=== PATIENT | male | born 1950 | race Two or more races ===

== ENCOUNTER 2023-09-11 12:22 | Observation (INO) | payer OTHER ==
[2023-09-11] MEDS ORDERED: ACETAMINOPHEN 1000 MG/100 ML BAG IVPB ONE (16:16)
[2023-09-11 16:17] LABS: EPI CELLS 9 /uL (0-25.1); HYALINE CASTS 1 /uL (0-3.1); PH,URINE 5.5 (5.0-8.0); URINE APPEARANCE TURBID; URINE BACTERIA 3119 /uL (0-1359); URINE BILIRUBIN NEGATIVE (NEGATIVE); URINE COLOR ORANGE; URINE GLUCOSE (UA) NEGATIVE (NEGATIVE); URINE KETONE NEGATIVE (NEGATIVE); URINE LEUK ESTERASE 3+ (NEGATIVE); URINE NITRITE POSITIVE (NEGATIVE); URINE PROTEIN 2+ (NEGATIVE); URINE RBC 16749 /uL (0-23.9); URINE WBC 1780 /uL (0-25.8)
[2023-09-11] MEDS ORDERED: PIPERACILLIN/TAZOB 4.5 GM 4.5 GM in DEXTROSE 5%-WATER 100 ML IVPB ONE (16:24)
[2023-09-11 17:29] LABS: HEMATOCRIT 40.9 % (35.4-49); HEMOGLOBIN 13.3 GM/dL (11.7-16.9); MCHC 32.6 g/dl (32.0-35.9); MEAN CELL VOLUME 79.9 fl (80-96); MEAN PLT VOLUME 9.4 fl (7.5-11.1); PLATELET COUNT 174 10^3/uL (134-434); RBC 5.12 M/mm3 (4.00-5.60); RDW 15.5 % (11.9-15.9)
[2023-09-11 17:37] LABS: POTASSIUM 4.9 mmol/L (3.5-5.1)
[2023-09-11 17:40] LABS: ALBUMIN 3.7 g/dl (3.4-5.0); BLOOD UREA NITROGEN 14.4 mg/dL (7-18)
[2023-09-11] MEDS ORDERED: PIPERACILLIN/TAZOB 4.5 GM 4.5 GM/100 ML BAG IVPB ONE (17:44)
[2023-09-11] MEDS ORDERED: ACETAMINOPHEN INJECTION 100 ML IVPB ONE (17:44)
[2023-09-11 17:45] LABS: BILIRUBIN,TOTAL 0.5 mg/dL (0.2-1); TOT PROT 7.8 g/dl (6.4-8.2)
[2023-09-11] MEDS ORDERED: ACETAMINOPHEN 325 MG TABLET (FP) PO PRN (17:45)
[2023-09-11 18:23] LABS: ANISOCYTOSIS 1+; OVALOCYTE 1+; PLATELET ESTIMATE NORMAL
[2023-09-11] MEDS: ALPRAZolam 0.25 MG TABLET PO SCH (22:55)
[2023-09-11] MEDS: HEPARIN NA (PORCINE) 5,000 UNITS/ML 1ML VIAL SQ SCH (23:02)
[2023-09-12 05:13] VITALS: BMI 33.7
[2023-09-12] MEDS: HEPARIN NA (PORCINE) 5,000 UNITS/ML 1ML VIAL SQ SCH ×3 (05:43→22:18)
[2023-09-12] MEDS: TAMSULOSIN HCL 0.4 MG CAP PO SCH (08:30)
[2023-09-12 09:24] LABS: BASO % 0.9 % (0-2.0); EOS % 0.3 % (0-4.5); HEMATOCRIT 43.3 % (35.4-49); LYMPH % 28.2 % (8-40); MCHC 32.4 g/dl (32.0-35.9); MEAN CELL VOLUME 80.2 fl (80-96); MEAN PLT VOLUME 9.5 fl (7.5-11.1); MONO % 17.8 % (3.8-10.2); NEUT % 52.8 % (42.8-82.8); PLATELET COUNT 185 10^3/uL (134-434); WHITE BLOOD COUNT 7.7 K/mm3 (4.0-10.0)
[2023-09-12 09:44] LABS: POTASSIUM 3.9 mmol/L (3.5-5.1)
[2023-09-12 09:52] LABS: ALBUMIN 3.7 g/dl (3.4-5.0); CALCIUM 8.9 mg/dL (8.5-10.1)
[2023-09-12 09:53] LABS: CREATININE 1.1 mg/dL (0.55-1.3)
[2023-09-12 09:54] LABS: BILIRUBIN,TOTAL 0.4 mg/dL (0.2-1)
[2023-09-12 09:56] LABS: PHOSPHOROUS 3.6 mg/dL (2.5-4.9)
[2023-09-12] MEDS ORDERED: ALPRAZOLAM 1 MG PO SCH (10:00)
[2023-09-12] MEDS ORDERED: PATIENT'S OWN MEDICATION (NON-FORMULARY) (Timolol [Betimol] 5 ML Drops) OP SCH (10:00)
[2023-09-12] MEDS: LOSARTAN POTASSIUM 50 MG TABLET PO SCH (10:01)
[2023-09-12] MEDS: HYDROCHLOROTHIAZIDE 12.5 MG CAPSULE (FP) PO SCH (10:02)
[2023-09-12] MEDS: CEFTRIAXONE 1 GM in DEXTROSE 5%-WATER - 50 ML IVPB SCH (10:02)
[2023-09-12] MEDS: CARVEDILOL PHOSPHATE CR 40 MG CAPSULE (FP) PO SCH (10:02)
[2023-09-12] MEDS: ALPRAZolam 0.25 MG TABLET PO SCH ×2 (10:04→22:18)
[2023-09-12] MEDS: TIMOLOL 0.5% OPHTHALMIC SOL 5 ML BOTTLE OU SCH (11:59)
[2023-09-12] MEDS: LATANOPROST 0.005% OPHTH SOLN 2.5ML BOTTLE OU SCH (11:59)
[2023-09-13] MEDS ORDERED: POLYETHYLENE GLYCOL (HEALTHYLAX) 3350 17 GM PACKET PO ONE (03:45)
[2023-09-13] MEDS: HEPARIN NA (PORCINE) 5,000 UNITS/ML 1ML VIAL SQ SCH ×3 (06:51→21:48)
[2023-09-13 08:44] LABS: CALCIUM 8.6 mg/dL (8.5-10.1)
[2023-09-13 08:45] LABS: ALBUMIN 3.2 g/dl (3.4-5.0); BLOOD UREA NITROGEN 14.2 mg/dL (7-18); POTASSIUM 3.9 mmol/L (3.5-5.1)
[2023-09-13 08:48] LABS: PHOSPHOROUS 3.4 mg/dL (2.5-4.9)
[2023-09-13 08:52] LABS: CREATININE 0.9 mg/dL (0.55-1.3)
[2023-09-13] MEDS: TAMSULOSIN HCL 0.4 MG CAP PO SCH (08:52)
[2023-09-13 08:57] LABS: TOT PROT 7.3 g/dl (6.4-8.2)
[2023-09-13 09:14] LABS: HEMATOCRIT 41.6 % (35.4-49); HEMOGLOBIN 13.4 GM/dL (11.7-16.9); MCH 25.7 pg (25.7-33.7); MCHC 32.2 g/dl (32.0-35.9); MEAN CELL VOLUME 79.6 fl (80-96); MEAN PLT VOLUME 9.6 fl (7.5-11.1); PLATELET COUNT 159 10^3/uL (134-434); RBC 5.23 M/mm3 (4.00-5.60); RDW 15.1 % (11.9-15.9); WHITE BLOOD COUNT 6.7 K/mm3 (4.0-10.0)
[2023-09-13] MEDS: CARVEDILOL PHOSPHATE CR 40 MG CAPSULE (FP) PO SCH (09:29)
[2023-09-13] MEDS: CEFTRIAXONE 1 GM in DEXTROSE 5%-WATER - 50 ML IVPB SCH (09:29)
[2023-09-13] MEDS: LATANOPROST 0.005% OPHTH SOLN 2.5ML BOTTLE OU SCH (09:30)
[2023-09-13] MEDS: TIMOLOL 0.5% OPHTHALMIC SOL 5 ML BOTTLE OU SCH (09:30)
[2023-09-13] MEDS: LOSARTAN POTASSIUM 50 MG TABLET PO SCH (10:20)
[2023-09-13] MEDS: HYDROCHLOROTHIAZIDE 12.5 MG CAPSULE (FP) PO SCH (10:20)
[2023-09-13] MEDS: ALPRAZolam 0.25 MG TABLET PO SCH ×2 (10:20→22:01)
[2023-09-13] MEDS: ERTAPENEM SODIUM 1 GM in SODIUM CHLORIDE 50 ML IVPB SCH (13:31)
[2023-09-13] MEDS: FLUTICASONE PROP 0.05% 16 GM NASAL SPRAY NS SCH ×2 (18:04→21:49)
[2023-09-13] MEDS ORDERED: SENNOSIDES 8.8 MG/5 ML SYRUP PO SCH (22:00)
[2023-09-14] MEDS: HEPARIN NA (PORCINE) 5,000 UNITS/ML 1ML VIAL SQ SCH ×2 (06:03→14:29)
[2023-09-14] MEDS: HYDROCHLOROTHIAZIDE 12.5 MG CAPSULE (FP) PO SCH (09:18)
[2023-09-14] MEDS: CARVEDILOL PHOSPHATE CR 40 MG CAPSULE (FP) PO SCH (09:18)
[2023-09-14] MEDS: ALPRAZolam 0.25 MG TABLET PO SCH (09:18)
[2023-09-14] MEDS: LOSARTAN POTASSIUM 50 MG TABLET PO SCH (09:18)
[2023-09-14] MEDS: TAMSULOSIN HCL 0.4 MG CAP PO SCH (09:18)
[2023-09-14] MEDS: ERTAPENEM SODIUM 1 GM in SODIUM CHLORIDE 50 ML IVPB SCH (09:19)
[2023-09-14] MEDS: TIMOLOL 0.5% OPHTHALMIC SOL 5 ML BOTTLE OU SCH (09:29)
[2023-09-14] MEDS: FLUTICASONE PROP 0.05% 16 GM NASAL SPRAY NS SCH (09:29)
[2023-09-14] MEDS: LATANOPROST 0.005% OPHTH SOLN 2.5ML BOTTLE OU SCH (09:30)
[2023-09-14 09:38] VITALS: RESP 16
[2023-09-14 15:34] VITALS: BP 124/62; PULSE 69; TEMP 98.2
== END 2023-09-14 17:58 | disposition home or self-care (01) ==
LOC: JER 12:22 → JERBED 16:34 → J6S 21:17
PROVIDERS: ADMIT Internal Medicine; ATTEND Internal Medicine
PROC: 05HY33Z Insertion of Infusion Device into Upper Vein, Percutaneous Approach (ICD-10-PCS; principal; 2023-09-11)
PROC: 3E03329 Introduction of Other Anti-infective into Peripheral Vein, Percutaneous Approach (ICD-10-PCS; 2023-09-11)
PROC: 3E033NZ Introduction of Analgesics, Hypnotics, Sedatives into Peripheral Vein, Percutaneous Approach (ICD-10-PCS; 2023-09-11)
PROC: 3E03329 Introduction of Other Anti-infective into Peripheral Vein, Percutaneous Approach (ICD-10-PCS; 2023-09-11)
PROC: 3E023GC Introduction of Other Therapeutic Substance into Muscle, Percutaneous Approach (ICD-10-PCS; 2023-09-11)
DX: T83.511A Infection and inflammatory reaction due to indwelling urethral catheter, initial encounter (principal); A41.51 Sepsis due to Escherichia coli [E. coli]; X58.XXXA Exposure to other specified factors, initial encounter; Y92.89 Other specified places as the place of occurrence of the external cause; Y93.89 Activity, other specified; R33.8 Other retention of urine; R31.0 Gross hematuria; Z29.89 Encounter for other specified prophylactic measures; N40.1 Benign prostatic hyperplasia with lower urinary tract symptoms; R39.198 Other difficulties with micturition; I10 Essential (primary) hypertension; N39.0 Urinary tract infection, site not specified; Z96.0 Presence of urogenital implants
CPT/HCPCS: 0241U-QW; 36415; 36569; 80053; 81003; 83735; 84100; 85025; 85027; 87040; 87086; 87186; 96365; 96366; 96367; 96372; 96375; 99285-25; G0378; J1644

== ENCOUNTER 2023-09-15 15:10 | Day surgery (SDC) | payer OTHER ==
[2023-09-15] MEDS ORDERED: ERTAPENEM SODIUM 1 GM in SODIUM CHLORIDE 50 ML IVPB ONE (15:30)
[2023-09-15 16:15] VITALS: BP 140/78; PULSE 80; RESP 18; TEMP 99
== END 2023-09-15 16:16 | disposition home or self-care (01) ==
LOC: FINJECTION 15:10 → FM/S 15:17 → FINJECTION 16:16
PROVIDERS: ATTEND Internal Medicine
DX: N39.0 Urinary tract infection, site not specified (principal)
CPT/HCPCS: 96365

== ENCOUNTER 2023-09-16 13:42 | Day surgery (SDC) | payer OTHER ==
[2023-09-16] MEDS ORDERED: ERTAPENEM SODIUM 1 GM in SODIUM CHLORIDE 50 ML IVPB ONE (14:00)
[2023-09-16 14:46] VITALS: BP 129/70; PULSE 73; RESP 16; TEMP 97.8
== END 2023-09-16 14:46 | disposition home or self-care (01) ==
LOC: FINJECTION 13:42 → FM/S 13:43 → FINJECTION 14:46
PROVIDERS: ATTEND Internal Medicine
DX: N39.0 Urinary tract infection, site not specified (principal)
CPT/HCPCS: 96365

== ENCOUNTER 2023-09-17 14:06 | Day surgery (SDC) | payer OTHER ==
[2023-09-17] MEDS ORDERED: ERTAPENEM SODIUM 1 GM in SODIUM CHLORIDE 50 ML IVPB ONE (14:30)
[2023-09-17 15:16] VITALS: BP 112/73; PULSE 75; RESP 16; TEMP 98.7
== END 2023-09-17 15:19 | disposition home or self-care (01) ==
LOC: FM/S 14:06 → FINJECTION 14:06
PROVIDERS: ATTEND Internal Medicine
DX: N39.0 Urinary tract infection, site not specified (principal)
CPT/HCPCS: 96365

== ENCOUNTER 2023-09-18 14:17 | Day surgery (SDC) | payer OTHER ==
[2023-09-18] MEDS: ERTAPENEM SODIUM 1 GM in SODIUM CHLORIDE 50 ML IVPB ONE (14:40)
[2023-09-18 16:17] VITALS: BP 115/73; PULSE 69; RESP 16; TEMP 98.1
== END 2023-09-18 15:24 | disposition home or self-care (01) ==
LOC: FINJECTION 14:17 → FINFUSION 14:17 → FM/S 14:18 → FINJECTION 15:24
PROVIDERS: ATTEND Internal Medicine
DX: N39.0 Urinary tract infection, site not specified (principal)
CPT/HCPCS: 96365

== ENCOUNTER 2023-09-19 13:47 | Day surgery (SDC) | payer OTHER ==
[2023-09-19] MEDS ORDERED: ERTAPENEM SODIUM 1 GM in SODIUM CHLORIDE 50 ML IVPB ONE (14:30)
[2023-09-19 15:09] VITALS: BP 125/79; PULSE 86; RESP 16; TEMP 98.3
== END 2023-09-19 15:09 | disposition home or self-care (01) ==
LOC: FINJECTION 13:47 → FM/S 13:49 → FINJECTION 15:09
PROVIDERS: ATTEND Internal Medicine
DX: N39.0 Urinary tract infection, site not specified (principal)
CPT/HCPCS: 96365

== ENCOUNTER 2023-09-20 13:39 | Day surgery (SDC) | payer OTHER ==
[2023-09-20] MEDS ORDERED: ERTAPENEM SODIUM 1 GM in SODIUM CHLORIDE 100 ML IVPB ONE (14:15)
[2023-09-20 15:33] VITALS: BP 122/66; PULSE 60; RESP 18; TEMP 98.2
== END 2023-09-20 15:33 | disposition home or self-care (01) ==
LOC: FINJECTION 13:39 → FM/S 13:40 → FINJECTION 15:33
PROVIDERS: ATTEND Internal Medicine
DX: N39.0 Urinary tract infection, site not specified (principal)
CPT/HCPCS: 96365

== ENCOUNTER 2023-09-21 13:34 | Day surgery (SDC) | payer OTHER ==
[2023-09-21] MEDS ORDERED: ERTAPENEM SODIUM 1 GM in SODIUM CHLORIDE 50 ML IVPB ONE (14:30)
[2023-09-21 14:58] VITALS: BP 126/52; PULSE 67; RESP 18; TEMP 98.1
== END 2023-09-21 15:50 | disposition home or self-care (01) ==
LOC: FINJECTION 13:34 → FM/S 13:35 → FINJECTION 15:50
PROVIDERS: ATTEND Internal Medicine
DX: N39.0 Urinary tract infection, site not specified (principal)
CPT/HCPCS: 96365

== ENCOUNTER 2023-09-22 13:38 | Day surgery (SDC) | payer OTHER ==
[2023-09-22] MEDS ORDERED: ERTAPENEM SODIUM 1 GM in SODIUM CHLORIDE 50 ML IVPB SCH (14:45)
[2023-09-22 16:17] VITALS: BP 111/62; PULSE 57; RESP 15; TEMP 97.4
== END 2023-09-22 16:41 | disposition home or self-care (01) ==
LOC: FINJECTION 13:38 → FM/S 13:43 → FINJECTION 16:41
PROVIDERS: ATTEND Internal Medicine
DX: N39.0 Urinary tract infection, site not specified (principal)
CPT/HCPCS: 96365

== ENCOUNTER 2023-10-28 01:11 | Emergency (ER) | payer OTHER ==
[2023-10-28 01:31] VITALS: BP 163/79; PULSE 73; RESP 18; TEMP 98.5; BMI 33.4
[2023-10-28 02:25] LABS: EPI CELLS 2 /uL (0-25.1); HYALINE CASTS 1 /uL (0-3.1); PH,URINE 5.5 (5.0-8.0); URINE APPEARANCE CLOUDY; URINE BACTERIA 93 /uL (0-1359); URINE BILIRUBIN NEGATIVE (NEGATIVE); URINE COLOR ORANGE; URINE GLUCOSE (UA) NEGATIVE (NEGATIVE); URINE KETONE NEGATIVE (NEGATIVE); URINE LEUK ESTERASE 3+ (NEGATIVE); URINE NITRITE NEGATIVE (NEGATIVE); URINE PROTEIN 1+ (NEGATIVE); URINE UROBILINOGEN 0.2 mg/dL (0.2-1.0); URINE WBC 805 /uL (0-25.8)
== END 2023-10-28 02:59 | disposition home or self-care (01) ==
LOC: JER 01:11
PROC: 0T9B70Z Drainage of Bladder with Drainage Device, Via Natural or Artificial Opening (ICD-10-PCS; principal; 2023-10-28)
DX: R33.9 Retention of urine, unspecified (principal); N39.0 Urinary tract infection, site not specified
CPT/HCPCS: 81003; 87086; 87186; 99283-25